=== PATIENT | female | born 1940 | race Caucasian/White ===

== ENCOUNTER → 2018-06-07 | Outpatient (CLI) | payer MEDICARE, BC ==
--- NOTE | 2018-06-07 11:16 | Diagnostic Imaging Report ---
HIP RIGHT 2-3 VW (+/- PELVIS) - 2 views HISTORY: Right hip pain. COMPARISON: None available. FINDINGS: Bones: No acute displaced fracture. Osseous alignment is within normal limits. Joints: The joint spaces are well-maintained. Soft tissues: The soft tissues appear unremarkable. IMPRESSION: No acute radiographic abnormality. Signed by: Dr. Jessee Bentley M.D. on 06/07/2018 11:13 AM
== END ==
LOC: RAD 10:21
PROVIDERS: ATTEND Student in an Organized Health Care Education/Training Program
DX: M25.551 Pain in right hip (principal)

== ENCOUNTER → 2019-05-25 | Outpatient (CLI) | payer MEDICARE, BC ==
[~2019-05-25] MED LIST: GADOBENATE DIMEGLUMINE 1 ML IV ONE; IOPAMIDOL 300 MG/ML 15ML VIAL IT ONE
--- NOTE | 2019-05-25 13:11 | Diagnostic Imaging Report ---
EXAMINATION: MRI of the cervical spine without contrast HISTORY: Neck pain radiating to the left upper extremity. COMPARISON: None available TECHNIQUE: Sagittal T1, T2, STIR; axial T2, gradient echo. FINDINGS: Curvature: Normal lordosis. Vertebrae: No evidence of neoplasm, infection, or fracture. Minimal chronic anterior wedging of the T2, T3 and T4 vertebral bodies, with subtle increased upper thoracic kyphosis. Foramen magnum: No mass, Chiari malformation, or basilar invagination. Spinal Cord: Normal size and signal intensity. Soft Tissues: Unremarkable. Degenerative changes: C1-C2: Mild degenerative changes without stenoses. C2-C3: Prominent facet arthropathy is minimal left side. Mild left foraminal stenoses. C3-C4: Disc osteophyte complex formation, bilateral uncovertebral and facet arthroses. Mild right and moderate to severe left foraminal stenoses. Moderate spinal canal stenosis. Minimal retrolisthesis. Compression upon the exiting left C4 nerve root cannot totally be excluded. C4-C5: Asymmetric left disc osteophyte complex formation, bilateral uncovertebral and facet arthrosis. Moderate right and severe left foraminal stenoses. Compression upon the exiting left C5 nerve root cannot be excluded C5-C6: Disc osteophyte complex formation, bilateral uncovertebral and facet arthrosis. Severe spinal canal and bilateral foraminal stenoses. Compression upon the corresponding exiting C6 roots cannot be excluded. C6-C7: Disc osteophyte complex formation, bilateral uncovertebral and facet arthrosis. Moderate spinal canal and severe right foraminal stenosis. C7-T1: Unremarkable. IMPRESSION: 1. Severe degenerative spinal canal and bilateral foraminal stenosis at C5-C6. 2. Moderate degenerative spinal canal and severe left foraminal stenosis at C3-C4 and C4-C5. 3. Moderate degenerative spinal canal and severe right foraminal stenosis at C6-C7. Signed by: Dr. Huyen Johnson M.D. on 05/25/2019 1:07 PM
--- NOTE | 2019-05-25 14:32 | Diagnostic Imaging Report ---
TECHNIQUE: Magnetic resonance imaging of the LEFT SHOULDER was performed after intra-articular injection of contrast. HISTORY: LEFT RTC SPRAIN , pain COMPARISON: Spot images from the intra-articular injection of contrast from the same date. FINDINGS: MUSCLES AND TENDONS: Rotator Cuff: Tendons: Supraspinatus and Infraspinatus: Full-thickness tear of the anterior, distal supraspinatus tendon with asymmetric tendon retraction, articular greater than bursal. The full-thickness component measures 0.8 cm (ML) x 0.8 cm (AP). Teres Minor: Intact Subscapularis: High-grade intrasubstance partial-thickness tear of the superior, distal fibers. Muscles: Mild diffuse muscle atrophy, without focally increased rotator cuff muscle atrophy. Biceps Tendon: Complex tearing, most notably at the level of the intertubercular groove and proximal humeral metaphysis. Medial subluxation of the torn tendon into the subscapularis defect. GLENOHUMERAL JOINT: Glenoid Labrum: Mild attenuation and fraying, most notably of the posterosuperior labrum. Articular Cartilage: High-grade to full-thickness erosions of the glenoid cartilage. Joint Fluid: Intra-articular contrast. ACROMIOCLAVICULAR JOINT: Moderate hypertrophic degenerative changes of the acromioclavicular joint. Synovitis and mild adjacent subchondral bone marrow edema, no effusion. BONE: The acromion is unremarkable. No focal or infiltrative bone marrow replacing abnormality. No acute fracture. SOFT TISSUES: Contrast within the subacromial/subdeltoid bursa, in keeping with full-thickness rotator cuff tear. IMPRESSION: 1. Full-thickness tear of the anterior supraspinatus tendon. 2. High-grade intrasubstance partial-thickness tear of the subscapularis tendon. 3. Complex partial tearing of the long head of the biceps tendon. 4. Moderate degenerative changes of the acromioclavicular joint and glenohumeral joint, including mild degenerative changes of the posterosuperior labrum. Signed by: Dr. Kvng Cruz D.O., M.M.M. on 05/25/2019 2:29 PM
--- NOTE | 2019-05-25 16:00 | Diagnostic Imaging Report ---
ADDENDUM #1 Fluoro time: 1.3 minutes Dose: 9.8mGy Signed by: Fawn Rivera MD on 05/27/2019 9:53 AM ORIGINAL REPORT EXAM: INJECTION ARTHROGRAM SHOULDER DATE: 05/25/2019 9:17 AM INDICATION: Left shoulder pain COMPARISON: None Physician performing procedure: Dr. Fawn Rivera MD PROCEDURES PERFORMED: Fluoroscopically-guided left glenohumeral joint arthrogram with MRI to follow Fluoro time: 1.3 Dose: 9.8mGy Anesthesia: Local, 1% lidocaine Devices: 22 gauge BD Quincke needle PROCEDURE REPORT: After written and verbal consent were obtained, the patient was placed supine on the fluoroscopy table with the left shoulder in external rotation. Using fluoroscopic guidance, sterile technique and local anesthesia, a 22 gauge, 3.5 inch needle was inserted percutaneously into the left glenohumeral joint. Proper placement was confirmed by injecting 1 cc of Isovue 300 into the joint under fluoroscopy. Next, 10 cc of a 1:100 mixture of Multihance with Isovue 300 and normal saline were then injected. Complications: None Blood loss: Minimal Samples: None Patient disposition: MRI in stable condition. IMPRESSION: Uncomplicated fluoroscopically-guided left glenohumeral arthrogram with MRI to follow. Contrast is within the joint. See MRI report for full findings. Signed by: Fawn Rivera MD on 05/25/2019 3:57 PM
== END ==
LOC: DX 09:09
PROVIDERS: ATTEND Orthopaedic Surgery
DX: S43.422A Sprain of left rotator cuff capsule, initial encounter (principal); M54.2 Cervicalgia; M54.12 Radiculopathy, cervical region
CPT/HCPCS: 20610; 23350; 72141; 73222; 77002; A9577; Q9967

== ENCOUNTER 2019-10-17 15:00 | Outpatient (RCR) | payer MEDICARE, BC | END 2019-10-22 | LOC: PT 15:00 | PROVIDERS: ATTEND Orthopaedic Surgery | DX: S43.432D Superior glenoid labrum lesion of left shoulder, subsequent encounter (principal); M25.512 Pain in left shoulder; M75.122 Complete rotator cuff tear or rupture of left shoulder, not specified as traumatic | CPT/HCPCS: 97139 ==

== ENCOUNTER 2019-11-07 14:49 | Outpatient (RCR) | payer MEDICARE, BC | END 2019-11-22 | LOC: PT 14:49 | PROVIDERS: ATTEND Orthopaedic Surgery | DX: M75.102 Unspecified rotator cuff tear or rupture of left shoulder, not specified as traumatic (principal) | CPT/HCPCS: 97139 ==

== ENCOUNTER 2024-12-16 05:22 | Inpatient (IN) | payer MEDICARE, BC ==
[2024-12-16] VITALS (12 sets, daily range): BP systolic 126–150; BP diastolic 75–91; PULSE 78–96; RESP 18–26; TEMP 97.7–98.6; O2SAT 95–100
[~2024-12-16] VITALS: Ht 167.6 cm; Wt 79.4 kg
[~2024-12-16 05:22] MED LIST changes: +ALBUTEROL0.63 MG/3 NEB; +ATORVASTATIN CA20 MG PO; +CARTIA XT180 MG; -GADOBENATE DIMEGLUMINE 1 ML IV ONE; +GLIPIZIDE ER5 MG PO; -IOPAMIDOL 300 MG/ML 15ML VIAL IT ONE; +LOSARTAN POTASS25 MG PO; +MONTELUKAST SOD10 MG PO; +PANTOPRAZOLE SO40 MG PO; +PROAIR RESPICL90 MCG; +PULMICORT2 M1; +TRELEGY ELLIPT1 EAC1; +XOLAIR150 MG
[2024-12-16] MEDS ORDERED: SODIUM CHLORIDE FLUSH 10 ML SYR IV PRN (06:15)
[2024-12-16 06:34] LABS: BASOPHILS # (AUTO) 0.1 (0.0-0.1); BASOPHILS % 0.5 % (0.0-1.0); EOSINOPHILS # (AUTO) 2.4 (0.0-0.4); EOSINOPHILS % 18.5 % (0.0-6.0); HEMATOCRIT 29.5 % (34.2-44.1); HEMOGLOBIN 9.5 g/dL (12.0-16.0); LYMPHOCYTES # (AUTO) 5.5 (1.0-3.2); LYMPHOCYTES % 43.6 % (18.0-39.1); MEAN CORPUSCULAR HGB CONC 32.2 g/dL (31-35); MEAN CORPUSCULAR VOLUME 89.9 fL (81-99); MONOCYTES % 7.7 % (4.4-11.3); NEUTROPHILS # (AUTO) 3.7 (2.1-6.9); NEUTROPHILS % 29.1 % (38.7-80.0); PLATELET COUNT 256 x10e3/uL (140-360); RED BLOOD COUNT 3.28 x10e6/uL (3.6-5.1); RED CELL DISTRIBUTION WIDTH 15.3 % (11.7-14.4); WHITE BLOOD COUNT 12.67 x10e3/uL (4.8-10.8)
[2024-12-16 06:49] LABS: ALBUMIN 2.8 g/dL (3.5-5.0); ALBUMIN/GLOBULIN RATIO 0.8 (0.8-2.0); BILIRUBIN,TOTAL 0.9 mg/dL (0.2-1.2); CALCIUM 8.6 mg/dL (8.4-10.2); CREATININE, SERUM 1.26 mg/dL (0.57-1.11); MAGNESIUM 1.8 MG/DL (1.3-2.1); TOTAL PROTEIN 6.4 g/dL (6.5-8.1)
[2024-12-16 06:55] LABS: TROPONIN I 0.011 ng/mL (0-0.300)
[2024-12-16 07:00] LABS: CORONAVIRUS COVID-19 AG NEGATIVE (NEGATIVE); INFLUENZA A AG NEGATIVE (NEGATIVE); INFLUENZA B AG NEGATIVE (NEGATIVE); STREPTOCOCCUS GRP A ANTIGEN NEGATIVE (NEGATIVE)
[2024-12-16] MEDS: ALBUTEROL/IPRATROPIUM 3 ML NEB NEB ONE (07:00)
[2024-12-16] MEDS: DEXAMETHASONE SOD PHOS 10 MG/1 ML VIAL IV ONE (08:03)
[2024-12-16] MEDS: Doxycycline IV 100 MG in SODIUM CHLORIDE 0.9% 100 ML IV SCH (08:03)
[2024-12-16] MEDS: SODIUM CHLORIDE 0.9% 1000ML 2,380 ML IV SCH (08:04)
[2024-12-16] MEDS: ALBUTEROL/IPRATROPIUM 3 ML NEB NEB SCH (10:00)
[2024-12-16 10:16] LABS: EOSINOPHILS % (MANUAL) 21 % (0-7); LYMPHOCYTES % (MANUAL) 39 % (19-48); MONOCYTES % (MANUAL) 5 % (3.4-9.0); NEUTROPHILS % (MANUAL) 35 % (40-74); PLATELET ESTIMATE ADEQUATE; PLATELET MORPHOLOGY COMMENT NORMAL; RBC MORPHOLOGY COMMENT NORMAL
[2024-12-16 10:39] LABS: INR 1.34; PROTHROMBIN TIME 17.3 seconds (11.9-14.5)
[2024-12-16 10:40] LABS: PARTIAL THROMBOPLASTIN TIME 29.2 seconds (23.8-35.5)
[2024-12-16] MEDS: SODIUM CHLORIDE 0.9% 1000ML 1,000 ML IV SCH (12:21)
[2024-12-16 13:39] LABS: TROPONIN I 0.007 ng/mL (0-0.300)
[2024-12-16] MEDS ORDERED: DEXTROSE 50% SYRINGE 50 ML IV PRN (13:45)
[2024-12-16] MEDS ORDERED: METHYLPREDNISOLONE SOD SUCC 125 MG/2ML VIAL IV SCH (14:00)
[2024-12-16] MEDS ORDERED: CETIRIZINE HCL10 MG PO (14:59)
[2024-12-16] MEDS ORDERED: OXYBUTYNIN CHLOR5 MG PO (14:59)
[2024-12-16] MEDS ORDERED: SERTRALINE HCL50 MG PO (14:59)
[2024-12-16] MEDS ORDERED: ELIQUIS2.5 MG PO (14:59)
[2024-12-16] MEDS ORDERED: METOPROLOL SUCC25 MG PO (14:59)
[2024-12-16] MEDS: METOPROLOL SUCCINATE 25 MG TAB XL PO SCH (16:49)
[2024-12-16] MEDS: APIXABAN 2.5 MG TABLET PO SCH (16:49)
[2024-12-16] MEDS: OXYBUTYNIN CHLORIDE 5 MG TAB PO SCH (16:49)
[2024-12-16] MEDS: INSULIN REGULAR, HUMAN 100 UNIT/1 ML SQ SCH (16:52)
[2024-12-16] MEDS: BUDESONIDE/FORMOTEROL 160/4.5MCG INHALER INH SCH (18:48)
[2024-12-16] MEDS: BENZONATATE 100 MG CAP PO PRN (21:57)
[2024-12-16] MEDS: DOCUSATE SODIUM 100 MG CAP PO SCH (21:57)
[2024-12-16] MEDS: ATORVASTATIN 20 MG TAB PO SCH (21:57)
[2024-12-16] MEDS: METHYLPREDNISOLONE SOD SUCC 125 MG/2ML VIAL IV SCH (21:58)
[2024-12-16] MEDS ORDERED: HYDROCODONE/APAP 7.5MG-325MG 1 EA TAB PO PRN (23:00)
[2024-12-16] MEDS ORDERED: ACETAMINOPHEN 325 MG TAB PO PRN (23:00)
[2024-12-16] MEDS: ACETAMINOPHEN 325 MG TAB PO PRN (23:11)
[2024-12-17] VITALS (13 sets, daily range): BP systolic 122–149; BP diastolic 54–89; PULSE 82–168; RESP 18–20; TEMP 97.9–98.7; O2SAT 94–100
[2024-12-17 03:05] LABS: TROPONIN I 0.005 ng/mL (0-0.300)
[2024-12-17 06:27] LABS: BASOPHILS % 0.3 % (0.0-1.0); EOSINOPHILS % 0.3 % (0.0-6.0); HEMATOCRIT 28.5 % (34.2-44.1); HEMOGLOBIN 9.3 g/dL (12.0-16.0); LYMPHOCYTES # (AUTO) 2.5 (1.0-3.2); LYMPHOCYTES % 21.6 % (18.0-39.1); MEAN CORPUSCULAR HEMOGLOBIN 29.2 pg (28-32); MEAN CORPUSCULAR HGB CONC 32.6 g/dL (31-35); MEAN CORPUSCULAR VOLUME 89.3 fL (81-99); MONOCYTES # (AUTO) 0.5 (0.2-0.8); MONOCYTES % 3.8 % (4.4-11.3); NEUTROPHILS # (AUTO) 8.2 (2.1-6.9); NEUTROPHILS % 69.9 % (38.7-80.0); PLATELET COUNT 297 x10e3/uL (140-360); RED BLOOD COUNT 3.19 x10e6/uL (3.6-5.1); RED CELL DISTRIBUTION WIDTH 15.1 % (11.7-14.4); WHITE BLOOD COUNT 11.77 x10e3/uL (4.8-10.8)
[2024-12-17 06:58] LABS: CHOL/HDL RATIO 2.6 (3.0-3.6); PHOSPHORUS 3.6 MG/DL (2.3-4.7)
[2024-12-17 07:00] LABS: ALBUMIN/GLOBULIN RATIO 0.8 (0.8-2.0); ANION GAP 18.7 mmol/L (8-16); BILIRUBIN,TOTAL 0.5 mg/dL (0.2-1.2); CALCIUM 8.2 mg/dL (8.4-10.2); CREATININE, SERUM 1.38 mg/dL (0.57-1.11); POTASSIUM 4.7 mmol/L (3.5-5.1); TOTAL PROTEIN 6.9 g/dL (6.5-8.1)
[2024-12-17 07:21] LABS: FERRITIN 147.23 ng/mL (4.63-204.00); FREE T4 (FREE THYROXINE) 0.96 ng/dL (0.8-1.8); THYROID STIMULATING HORMONE 1.301 uIU/mL (0.350-4.940)
[2024-12-17] MEDS: NON-FORMULARY MEDICATION (Cetirizine Hcl 10 MG) PO SCH (09:00)
[2024-12-17] MEDS: SERTRALINE HCL 50 MG TAB PO SCH (09:02)
[2024-12-17] MEDS: PANTOPRAZOLE SOD 40 MG TABEC PO SCH (09:02)
[2024-12-17] MEDS: DILTIAZEM HCL 180 MG CAP ER PO SCH (09:02)
[2024-12-17] MEDS: MONTELUKAST SODIUM 10 MG TAB PO SCH (09:02)
[2024-12-17 11:47] LABS: BILIRUBIN,URINE NEGATIVE (NEGATIVE); CLARITY,URINE TURBID (CLEAR); COLOR,URINE YELLOW (YELLOW); GLUCOSE, URINE NEGATIVE (NEGATIVE); KETONES,URINE 1+ (NEGATIVE); LEUKOCYTE ESTERASE ,URINE LARGE (NEGATIVE); NITRITE,URINE POSITIVE (NEGATIVE); PH,URINE 5.5 (5 - 7); PROTEIN,URINE DIPSTICK 2+ (NEGATIVE); URINE UROBILINOGEN 0.2 mg/dL (0.2 - 1)
[2024-12-17 11:59] LABS: BACTERIA,URINE MANY /HPF; EPITHELIAL CELLS,URINE FEW /LPF; RBC,URINE 21-50 /HPF (0-5); WBC,URINE (MAN) >50 /HPF (0-5)
[2024-12-17] MEDS: IRON SUCROSE 100 MG in SODIUM CHLORIDE 0.9% 100 ML IV SCH (12:27)
[2024-12-17 13:32] LABS: ABG HCO3 18 mmol/L (22-26); ABG PCO2 28 mmHg (35-45); ABG PH 7.42 (7.35-7.45); ABG PO2 142 mmHg (80-105); ABG TCO2 19
[2024-12-17 13:51] LABS: TOTAL PROTEIN, URINE 33.3 mg/dL (1-14)
[2024-12-17 14:17] LABS: CREATININE,URINE RANDOM 133.58 mg/dL (47-110)
[2024-12-17 14:31] LABS: PROTEIN/CREATININE RATIO,URINE 0.25
[2024-12-17] MEDS: SODIUM BICARBONATE 650 MG TAB PO SCH (17:27)
[2024-12-17] MEDS: GUAIFENESIN 600MG/DEXTROMETHORPHAN 30MG TABSR PO PRN (19:41)
[2024-12-17] MEDS: VANCOMYCIN 1.25GM/250 ML (PEG) 250 ML IV STA (20:40)
[2024-12-17] MEDS: CEPACOL SORE THROAT LOZENGES PO PRN (22:01)
[2024-12-18] VITALS (11 sets, daily range): BP systolic 114–136; BP diastolic 59–70; PULSE 72–87; RESP 16–20; TEMP 97.7–98.5; O2SAT 94–100
[2024-12-18] MEDS: SODIUM BICARBONATE 8.4% SYRING 50 ML in SODIUM CHLORIDE 0.45% 1,000 ML IV SCH (00:19)
[2024-12-18 05:21] LABS: BASOPHILS % 0.2 % (0.0-1.0); EOSINOPHILS % 0.5 % (0.0-6.0); HEMATOCRIT 26.1 % (34.2-44.1); HEMOGLOBIN 8.6 g/dL (12.0-16.0); LYMPHOCYTES # (AUTO) 2.4 (1.0-3.2); LYMPHOCYTES % 29.2 % (18.0-39.1); MEAN CORPUSCULAR HEMOGLOBIN 29.5 pg (28-32); MEAN CORPUSCULAR VOLUME 89.4 fL (81-99); MONOCYTES # (AUTO) 0.6 (0.2-0.8); MONOCYTES % 7.6 % (4.4-11.3); PLATELET COUNT 229 x10e3/uL (140-360); RED BLOOD COUNT 2.92 x10e6/uL (3.6-5.1); RED CELL DISTRIBUTION WIDTH 15.4 % (11.7-14.4); WHITE BLOOD COUNT 8.31 x10e3/uL (4.8-10.8)
[2024-12-18 05:46] LABS: ALBUMIN 2.8 g/dL (3.5-5.0); ALBUMIN/GLOBULIN RATIO 0.9 (0.8-2.0); ANION GAP 15.1 mmol/L (8-16); BILIRUBIN,TOTAL 0.4 mg/dL (0.2-1.2); CALCIUM 8.2 mg/dL (8.4-10.2); CREATININE, SERUM 1.21 mg/dL (0.57-1.11); POTASSIUM 4.1 mmol/L (3.5-5.1)
[2024-12-18] MEDS: CYANOCOBALAMIN INJ 1,000 MCG/ML VIAL IM SCH (08:53)
[2024-12-18] MEDS ORDERED: METHYLPREDNISOLONE SOD SUCC 40 MG/ML VIAL 1ML IV SCH (09:00)
[2024-12-18] MEDS: METHYLPREDNISOLONE SOD SUCC 40 MG/ML VIAL 1ML IV SCH (09:20)
[2024-12-18] MEDS ORDERED: SODIUM BICARBONATE 8.4% SYRING 50 ML in SODIUM CHLORIDE 0.45% 1,000 ML IV SCH (09:30)
[2024-12-18] MEDS: SODIUM BICARBONATE 8.4% VIAL 50 ML in SODIUM CHLORIDE 0.45% 1,000 ML IV SCH (12:16)
[2024-12-18] MEDS: Vancomycin IV 1 GM in SODIUM CHLORIDE 0.9% 250ML 250 ML IV SCH (15:24)
[2024-12-19] VITALS (14 sets, daily range): BP systolic 113–140; BP diastolic 49–66; PULSE 64–88; RESP 17–22; TEMP 97.8–98.6; O2SAT 93–100
[2024-12-19 05:45] LABS: BASOPHILS % 0.2 % (0.0-1.0); EOSINOPHILS % 0.2 % (0.0-6.0); HEMATOCRIT 25.7 % (34.2-44.1); HEMOGLOBIN 8.1 g/dL (12.0-16.0); LYMPHOCYTES # (AUTO) 1.9 (1.0-3.2); LYMPHOCYTES % 28.7 % (18.0-39.1); MEAN CORPUSCULAR HEMOGLOBIN 29.2 pg (28-32); MEAN CORPUSCULAR HGB CONC 31.5 g/dL (31-35); MEAN CORPUSCULAR VOLUME 92.8 fL (81-99); MONOCYTES # (AUTO) 0.6 (0.2-0.8); MONOCYTES % 8.6 % (4.4-11.3); NEUTROPHILS % 59.6 % (38.7-80.0); PLATELET COUNT 180 x10e3/uL (140-360); RED BLOOD COUNT 2.77 x10e6/uL (3.6-5.1); RED CELL DISTRIBUTION WIDTH 15.4 % (11.7-14.4); WHITE BLOOD COUNT 6.62 x10e3/uL (4.8-10.8)
[2024-12-19 06:23] LABS: ALBUMIN 2.7 g/dL (3.5-5.0); ANION GAP 12.2 mmol/L (8-16); BILIRUBIN,TOTAL 0.3 mg/dL (0.2-1.2); CREATININE, SERUM 1.01 mg/dL (0.57-1.11); POTASSIUM 4.2 mmol/L (3.5-5.1); TOTAL PROTEIN 5.5 g/dL (6.5-8.1)
[2024-12-19] MEDS ORDERED: SODIUM BICARBONATE 8.4% VIAL 50 ML in SODIUM CHLORIDE 0.45% 1,000 ML IV ONE (08:30)
[2024-12-19] MEDS: ONDANSETRON HCL INJ 2MG/ML 2ML 2 MG/ML VIAL IV PRN (09:37)
[2024-12-19] MEDS ORDERED: SODIUM BICARBONATE 8.4% 50 ML VIAL IV STA (11:56)
[2024-12-19] MEDS ORDERED: IOPAMIDOL 370 MG/ML 100 ML INFUS..BTL INJ ONE (12:36)
[2024-12-19] MEDS: SODIUM BICARBONATE 8.4% VIAL 50 ML in SODIUM CHLORIDE 0.45% 1,000 ML IV ONE (12:37)
[2024-12-19] MEDS: MEROPENEM 1 GM in SODIUM CHLORIDE 0.9% 100 ML IV SCH (14:29)
[2024-12-19 15:05] LABS: ANION GAP 16.6 mmol/L (8-16); CALCIUM 8.5 mg/dL (8.4-10.2); CREATININE, SERUM 1.06 mg/dL (0.57-1.11); POTASSIUM 4.6 mmol/L (3.5-5.1)
[2024-12-20] VITALS (13 sets, daily range): BP systolic 109–169; BP diastolic 55–95; PULSE 61–87; RESP 18–22; TEMP 97.3–98.1; O2SAT 90–99
[2024-12-20 05:32] LABS: BASOPHILS % 0.1 % (0.0-1.0); EOSINOPHILS % 0.2 % (0.0-6.0); HEMATOCRIT 26.1 % (34.2-44.1); HEMOGLOBIN 8.7 g/dL (12.0-16.0); LYMPHOCYTES # (AUTO) 2.7 (1.0-3.2); LYMPHOCYTES % 22.7 % (18.0-39.1); MEAN CORPUSCULAR HEMOGLOBIN 29.9 pg (28-32); MEAN CORPUSCULAR HGB CONC 33.3 g/dL (31-35); MEAN CORPUSCULAR VOLUME 89.7 fL (81-99); MONOCYTES # (AUTO) 0.9 (0.2-0.8); MONOCYTES % 7.4 % (4.4-11.3); NEUTROPHILS # (AUTO) 7.7 (2.1-6.9); NEUTROPHILS % 65.6 % (38.7-80.0); PLATELET COUNT 229 x10e3/uL (140-360); RED BLOOD COUNT 2.91 x10e6/uL (3.6-5.1); RED CELL DISTRIBUTION WIDTH 15.5 % (11.7-14.4); WHITE BLOOD COUNT 11.77 x10e3/uL (4.8-10.8)
[2024-12-20 06:11] LABS: ALBUMIN 2.9 g/dL (3.5-5.0); ANION GAP 14.3 mmol/L (8-16); BILIRUBIN,TOTAL 0.5 mg/dL (0.2-1.2); CALCIUM 8.2 mg/dL (8.4-10.2); CREATININE, SERUM 0.89 mg/dL (0.57-1.11); POTASSIUM 4.3 mmol/L (3.5-5.1); TOTAL PROTEIN 5.9 g/dL (6.5-8.1)
[2024-12-20] MEDS: POLYETHYLENE GLYCOL 3350 17 GM PACK PO PRN (08:59)
[2024-12-20] MEDS: METHYLPREDNISOLONE SOD SUCC 125 MG/2ML VIAL IV ONE (13:22)
[2024-12-21] VITALS (13 sets, daily range): BP systolic 120–144; BP diastolic 57–85; PULSE 63–87; RESP 18–32; TEMP 97.7–98.2; O2SAT 94–100
[2024-12-21] MEDS: ALPRAZOLAM 0.25 MG TAB PO PRN (09:17)
[2024-12-22] VITALS (11 sets, daily range): BP systolic 118–148; BP diastolic 49–66; PULSE 60–79; RESP 18–20; TEMP 97.5–97.9; O2SAT 93–100
[2024-12-22 06:46] LABS: ANION GAP 15.1 mmol/L (8-16); CALCIUM 8.2 mg/dL (8.4-10.2); CREATININE, SERUM 0.88 mg/dL (0.57-1.11); POTASSIUM 4.1 mmol/L (3.5-5.1)
[2024-12-23] VITALS (13 sets, daily range): BP systolic 110–145; BP diastolic 53–99; PULSE 66–78; RESP 18–22; TEMP 97.5–98.3; O2SAT 94–100
[2024-12-23 10:26] LABS: ABG HCO3 18 mmol/L (22-26); ABG PCO2 28 mmHg (35-45); ABG PH 7.42 (7.35-7.45); ABG PO2 142 mmHg (80-105); ABG TCO2 19
[2024-12-23] MEDS ORDERED: MAGNESIUM HYDROXIDE 30 ML UDC PO PRN (17:30)
[2024-12-23] MEDS: BISACODYL 5 MG TAB EC PO ONE (18:12)
[2024-12-24] VITALS (11 sets, daily range): BP systolic 109–151; BP diastolic 52–72; PULSE 63–77; RESP 18–23; TEMP 97.6–98.4; O2SAT 95–100
[2024-12-24] MEDS: PREDNISONE 20 MG TAB PO SCH (08:49)
[2024-12-24] MEDS ORDERED: BENZONATATE100 MG PO (14:55)
[2024-12-24] MEDS ORDERED: Albuterol/Ipratropium Nebulize NEB (14:55)
[2024-12-24] MEDS ORDERED: PANTOPRAZOLE SO40 MG PO (14:55)
[2024-12-24] MEDS ORDERED: MIRALAX17 GM PO (14:55)
[2024-12-24] MEDS ORDERED: PREDNISONE20 MG PO (14:55)
== END 2024-12-24 17:45 | DRG 190 ==
LOC: ER 05:28 → ERHOLD 09:12 → MED/SURG2 11:28
PROVIDERS: ADMIT Internal Medicine; ATTEND Internal Medicine
PROC: 05HA33Z Insertion of Infusion Device into Left Brachial Vein, Percutaneous Approach (ICD-10-PCS; principal; 2024-12-17)
PROC: 3E03329 Introduction of Other Anti-infective into Peripheral Vein, Percutaneous Approach (ICD-10-PCS; 2024-12-17)
PROC: 5A0945A Assistance with Respiratory Ventilation, 24-96 Consecutive Hours, High Flow/Velocity Cannula (ICD-10-PCS; 2024-12-21)
DX: J44.0 Chronic obstructive pulmonary disease with (acute) lower respiratory infection (principal); J18.9 Pneumonia, unspecified organism; E87.4 Mixed disorder of acid-base balance; J98.11 Atelectasis; N17.9 Acute kidney failure, unspecified; Z16.12 Extended spectrum beta lactamase (ESBL) resistance; J44.1 Chronic obstructive pulmonary disease with (acute) exacerbation; N30.90 Cystitis, unspecified without hematuria; B96.20 Unspecified Escherichia coli [E. coli] as the cause of diseases classified elsewhere; I12.9 Hypertensive chronic kidney disease with stage 1 through stage 4 chronic kidney disease, or unspecified chronic kidney disease; N18.30 Chronic kidney disease, stage 3 unspecified; I48.0 Paroxysmal atrial fibrillation; Z79.01 Long term (current) use of anticoagulants; G47.33 Obstructive sleep apnea (adult) (pediatric); Z87.891 Personal history of nicotine dependence; B91 Sequelae of poliomyelitis; Z71.3 Dietary counseling and surveillance; Z68.28 Body mass index [BMI] 28.0-28.9, adult; Y95 Nosocomial condition; E11.22 Type 2 diabetes mellitus with diabetic chronic kidney disease; E11.69 Type 2 diabetes mellitus with other specified complication; E78.5 Hyperlipidemia, unspecified; E11.40 Type 2 diabetes mellitus with diabetic neuropathy, unspecified; R80.9 Proteinuria, unspecified; R33.9 Retention of urine, unspecified; F41.9 Anxiety disorder, unspecified; D63.8 Anemia in other chronic diseases classified elsewhere; D50.9 Iron deficiency anemia, unspecified; R53.1 Weakness; R53.81 Other malaise; M19.91 Primary osteoarthritis, unspecified site; Z66 Do not resuscitate; Z11.52 Encounter for screening for COVID-19; Z87.01 Personal history of pneumonia (recurrent)
CPT/HCPCS: 36415; 36600; 71045; 71260; 74230; 76770; 80048; 80053; 80061; 80202; 81001; 82550; 82570; 82607; 82728; 82746; 82805; 82948; 83036; 83518; 83540; 83605; 83735; 83880; 84100; 84156; 84439; 84443; 84466; 84484; 85025; 85045; 85610; 85730; 87040; 87070; 87071; 87086; 87186; 87205; 93005; 93306; 94640; 94760; 94799; 99252; 99284; J0692; J1100; J1756; J2185; J2405; J2470; J2543; J2919; J3420; J7030; J7050; J7512; Q9967

== ENCOUNTER → 2025-03-31 | Outpatient (REF) | payer MEDICARE, BC ==
[~2025-03-31] MED LIST changes: +Albuterol/Ipratropium Nebulize NEB; +BENZONATATE100 MG PO; +CETIRIZINE HCL10 MG PO; +ELIQUIS2.5 MG PO; +METOPROLOL SUCC25 MG PO; +MIRALAX17 GM PO; +OXYBUTYNIN CHLOR5 MG PO; +PREDNISONE20 MG PO; +SERTRALINE HCL50 MG PO
== END ==
LOC: CT 14:45
PROVIDERS: ATTEND Internal Medicine Critical Care Medicine
DX: J45.909 Unspecified asthma, uncomplicated (principal); R91.8 Other nonspecific abnormal finding of lung field
CPT/HCPCS: 71250